=== PATIENT | male | born 1945 | race Hispanic/Latino ===

== ENCOUNTER 2018-12-10 16:37 | Observation (INO) | payer OTHER, MEDICARE ==
[~2018-12-10] VITALS: Ht 162.6 cm; Wt 69.8 kg
[2018-12-10] MEDS ORDERED: IPRATROPIUM/ALBUTEROL SULFATE 3 ML SOLUTION IH ONE (16:40)
[2018-12-10] MEDS ORDERED: RACEPINEPHRINE HCL 2.25% 0.5 ML NEB SOLN ONE (16:46)
[2018-12-10] MEDS ORDERED: LORAZEPAM 2 MG/ML 1 ML VIAL ONE (16:48)
[2018-12-10 16:57] LABS: BASOPHILS % (AUTO) 0.3 % (0.0-5.0); EOSINOPHILS % (AUTO) 5.4 % (0.0-8.0); HEMATOCRIT 38.9 % (42-54); LYMPHOCYTES % (AUTO) 28.9 % (21.0-51.0); MEAN CORPUSCULAR HGB CONC 33.8 g/dL (32.0-36.0); MEAN CORPUSCULAR VOLUME 88.6 fL (79-99); MONOCYTES % (AUTO) 10.5 % (3.0-13.0); NEUTROPHILS % (AUTO) 54.9 % (40.0-77.0); PLATELET COUNT (AUTO) 309 K/uL (130-400); RED BLOOD CELL COUNT(AUTO) 4.38 MIL/uL (4.50-6.20); WHITE BLOOD COUNT (AUTO) 7.5 K/uL (4.8-10.8)
[2018-12-10 17:00] LABS: ABG BASE EXCESS -0.8 mmol/L (-2.0-3.0); ABG HCO3 24.1 mmol/L (21.0-28.0); ABG OXYGEN SATURATION 99.1 % (95.0-99.0); ABG PCO2 41 mmHg (35-48)
[2018-12-10 17:06] LABS: CREATININE 0.8 mg/dL (0.5-1.5); POTASSIUM 3.6 mmol/L (3.5-5.1)
[2018-12-10 17:11] LABS: ALBUMIN 4.5 g/dL (3.5-5.0); BILIRUBIN,TOTAL 0.7 mg/dL (0.2-1.0); TOTAL PROTEIN, SERUM 8.1 g/dL (6.0-8.3)
[2018-12-10] MEDS ORDERED: CEFTRIAXONE SODIUM 1 GM ONE (20:16)
[2018-12-10] MEDS ORDERED: METHYLPREDNISOLONE SOD SUCC 40MG/ML 1ML ONE (20:16)
[2018-12-10] MEDS ORDERED: AZITHROMYCIN 250 MG TABLET PO ONE (21:29)
[2018-12-11] VITALS: BP 160/95
[2018-12-11] MEDS ORDERED: ONDANSETRON HCL 4 MG/2 ML VIAL IVP PRN (02:00)
[2018-12-11] MEDS ORDERED: ACETAMINOPHEN 325 MG TAB PO PRN ×2 (02:00)
[2018-12-11 04:00] VITALS: BP 159/95
[2018-12-11 04:41] LABS: HEMATOCRIT 37.6 % (42-54); MEAN CORPUSCULAR HEMOGLOBIN 30.8 pg (27.0-33.0); MEAN CORPUSCULAR VOLUME 88.1 fL (79-99); PLATELET COUNT (AUTO) 266 K/uL (130-400); RED BLOOD CELL COUNT(AUTO) 4.27 MIL/uL (4.50-6.20)
[2018-12-11 04:54] LABS: CREATININE 0.9 mg/dL (0.5-1.5)
[2018-12-11 08:41] VITALS: BP 152/96
[2018-12-11] MEDS: PREDNISONE 10 MG TABLET PO SCH ×3 (08:49→20:02)
[2018-12-11] MEDS: IPRATROPIUM/ALBUTEROL SULFATE 3 ML SOLUTION IH PRN ×2 (11:46→18:58)
[2018-12-11 12:08] VITALS: BP 133/82
[2018-12-11] MEDS ORDERED: DESL5TAB45 PO (13:00)
[2018-12-11] MEDS ORDERED: ATEN50TA PO (13:00)
[2018-12-11] MEDS ORDERED: FLUT16H NASAL (13:00)
[2018-12-11] MEDS ORDERED: PANT40TA25 PO (13:00)
[2018-12-11] MEDS ORDERED: ATOR40TA69 PO (13:00)
--- NOTE | 2018-12-11 15:39 | NUR ---
DCP CM met pt and family discussed dc plans. Pt is independent prior to admission, lives at home with spouse. Denies any equipments/services. Pt feels safe to go back home, spouse able to assist with transportation and needs as necessary. DC plan to home once stable. CM to cont to follow up. Addendum: 12/11/18 at 1542 by AMALIA FULTON LVN CM Amended: Links added.
[2018-12-11 17:03] VITALS: BP 116/75
[2018-12-11 20:00] VITALS: BP 122/80
[2018-12-11] MEDS ORDERED: CEFTRIAXONE SODIUM 1 GM IVP SCH (21:00)
[2018-12-11] MEDS ORDERED: ATORVASTATIN CALCIUM 40 MG TABLET PO SCH (21:00)
[2018-12-11] MEDS ORDERED: AZITHROMYCIN 500MG+NS 250ML 250 ML IV SCH (21:30)
[2018-12-12 00:05] VITALS: BP 121/72
[2018-12-12 04:12] VITALS: BP 133/81
[2018-12-12 08:00] VITALS: BP 138/66
[2018-12-12] MEDS: PREDNISONE 10 MG TABLET PO SCH ×2 (08:31→13:47)
[2018-12-12] MEDS ORDERED: PANTOPRAZOLE SODIUM 40 MG TABLET.DR PO SCH (09:00)
[2018-12-12] MEDS ORDERED: FLUTICASONE PROPIONATE 50MCG/SPRAY 16 GM BOTTLE NS PRN (09:00)
[2018-12-12] MEDS ORDERED: ATENOLOL 50 MG TABLET PO SCH (09:00)
[2018-12-12] MEDS ORDERED: CETIRIZINE HCL 5 MG TABLET PO PRN (09:00)
[2018-12-12 12:00] VITALS: BP 132/83
[2018-12-12 16:00] VITALS: BP 145/80
== END 2018-12-12 16:30 | disposition home or self-care (01) ==
LOC: EDH 16:37 → EDHIP 20:20 → 3CH 21:33
PROVIDERS: ADMIT Internal Medicine; ATTEND Internal Medicine
DX: J44.1 Chronic obstructive pulmonary disease with (acute) exacerbation (principal); I10 Essential (primary) hypertension; E78.5 Hyperlipidemia, unspecified; Z79.899 Other long term (current) drug therapy; Z87.891 Personal history of nicotine dependence
CPT/HCPCS: 36415 ×2; 36600; 71045; 71046; 80048; 80053; 82803; 84484; 85025; 85027; 93005; 94640 ×4; 94664; 96365; 96375; 99284; A4218; A4510; G0378 ×44; J0456; J0696 ×2; J2920; J7512 ×5; J2060

== ENCOUNTER → 2019-04-23 | Outpatient (CLI) | payer OTHER, MEDICARE ==
[~2019-04-23] MED LIST: ATEN50TA PO; ATOR40TA69 PO; DESL5TAB45 PO; FLUT16H NASAL; PANT40TA25 PO
== END | disposition home or self-care (01) ==
LOC: SHCH 10:55
PROVIDERS: ATTEND Internal Medicine Cardiovascular Disease
DX: R09.89 Other specified symptoms and signs involving the circulatory and respiratory systems (principal); R06.02 Shortness of breath
CPT/HCPCS: 93306

== ENCOUNTER → 2019-04-28 | Outpatient (CLI) | payer OTHER, MEDICARE | END | disposition home or self-care (01) | LOC: SHCH 10:44 | PROVIDERS: ATTEND Internal Medicine Cardiovascular Disease | DX: I65.23 Occlusion and stenosis of bilateral carotid arteries (principal) | CPT/HCPCS: 93880 ==

== ENCOUNTER → 2019-11-10 | Outpatient (CLI) | payer OTHER, MEDICARE ==
[~2019-11-10] MED LIST changes: +REGADENOSON 0.4 MG/5 ML PF SYG IVP SCH
== END | disposition home or self-care (01) ==
LOC: SHCH 08:50
PROVIDERS: ATTEND Internal Medicine Cardiovascular Disease
DX: R06.09 Other forms of dyspnea (principal); R07.9 Chest pain, unspecified
CPT/HCPCS: 78452; 93017; 96374; A9500 ×2; J2785